=== PATIENT | female | born 2000 ===

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

== ENCOUNTER → 2021-10-17 | Outpatient (CLI) | payer OTHER | LOC: LAB SHORT 19:38 → LAB 19:38 | DX: R30.9 Painful micturition, unspecified (principal) | CPT/HCPCS: 87086 ==